=== PATIENT | male | born 1965 | race Caucasian/White ===

== ENCOUNTER 2017-04-21 18:08 | Emergency (ER) | payer BC ==
[2017-04-21 20:21] LABS: SQUAMOUS EPITHIAL < 1 /hpf (0-5); URINE BACTERIA RARE (<OCC); URINE BILIRUBIN NEGATIVE (NEGATIVE); URINE CLARITY Clear (Clear); URINE COLOR Yellow (YELLOW); URINE GLUCOSE (UA) NORMAL (Normal); URINE LEUKOCYTE ESTERASE NEG Leu/uL (Negative); URINE NITRATE NEGATIVE (NEGATIVE); URINE PROTEIN NEGATIVE (NEGATIVE)
[2017-04-21 20:22] LABS: URINE BLOOD 2+ (NEGATIVE)
--- NOTE | 2017-04-21 20:49 | C.PDOC ---
History Of Present Illness 51 y/o male presents to the ER complaining of pain to the left testicle which has been present since last night. Patient reports that he also has urine discoloration. Patient denies fever, abdominal pain,vomiting, hematuria, dysuria , and testicular trauma. Time Seen by Provider: 04/21/17 19:34 Chief Complaint (Nursing): Male Genitourinary History Per: Patient History/Exam Limitations: no limitations Onset/Duration Of Symptoms: Days Current Symptoms Are (Timing): Still Present Severity: Moderate Past Medical History Reviewed: Historical Data, Nursing Documentation, Vital Signs Vital Signs: Last Vital Signs Temp 97.9 F 04/21/17 22:39 Pulse 62 04/21/17 22:39 Resp 18 04/21/17 22:39 BP 110/73 04/21/17 22:39 Pulse Ox 98 04/21/17 22:53 - Medical History PMH: Asthma, Depression, Gastritis Surgical History: Tonsillectomy - [facility] Procedures ESOPHAGOGASTRODUODENOSCOPY [EGD] W/CLOSED BIOPSY (11/15/98) Family History: States: No Known Family Hx - Social History Hx Alcohol Use: No Hx Substance Use: No - Immunization History Hx Tetanus Toxoid Vaccination: No Hx Influenza Vaccination: No Hx Pneumococcal Vaccination: No Review Of Systems Except As Marked, All Systems Reviewed And Found Negative. Constitutional: Negative for: Fever, Chills Gastrointestinal: Negative for: Vomiting (left testicular pain), Abdominal Pain Genitourinary: Positive for: Other. Negative for: Dysuria, Hematuria Physical Exam - Physical Exam Appears: Non-toxic, No Acute Distress Skin: Normal Color, Warm Head: Atraumatic, Normacephalic Eye(s): bilateral: Normal Inspection Nose: Normal Oral Mucosa: Moist Neck: Supple Chest: Symmetrical Cardiovascular: Rhythm Regular Respiratory: Normal Breath Sounds, No Accessory Muscle Use, No Rales, No Rhonchi , No Wheezing Gastrointestinal/Abdominal: Normal Exam, Soft, No Tenderness, No Hernia Male Genital: Testicular Tenderness (left sided testicular tenderness), No Testicular Swelling Extremity: Normal ROM Neurological/Psych: Oriented x3, Normal Speech, Normal Motor, Normal Sensation ED Course And Treatment O2 Sat by Pulse Oximetry: 98 (RA) Pulse Ox Interpretation: Normal - Other Rad US Scrotum X-Ray: Read By Radiologist Interpretation: EXAM: US Scrotum. EXAM DATE/TIME: 04/21/2017 8:07 PM. CLINICAL HISTORY: 51 years old, male; Pain; Scrotum pain; Additional info: Left testicular pain. TECHNIQUE: Real-time ultrasound of the scrotum with color Doppler and image documentation. COMPARISON: No relevant prior studies available. FINDINGS: The right testicle measures 4.9 x 2.5 x 3.3 cm and the left testicle measures 4.4 x 2.2 x 2.8 cm. The testicles are homogeneous bilaterally. Color flow and arterial waveforms are demonstrated to. the testicles bilaterally (no torsion). There is a 3 mm right epididymal cyst. The left epididymis is normal. There are small bilateral hydroceles. IMPRESSION: No acute findings. Progress Note: UA and Testicular US ordered. Reassessment Condition: Improved (Pt teports that pain has subsided and remained pain free in the ER, UA and testicular US reviewed and results were d/ w pt. Pt with hematuria, advised follow up. Plan d/w pt who does agree) Disposition Counseled Patient/Family Regarding: Diagnosis, Need For Followup, Rx Given - Disposition Referrals: PMD, Urologist [Other] Disposition: HOME/ ROUTINE Disposition Time: 22:51 Condition: STABLE Additional Instructions: Please follow up with PMD / Urologist Return to ER if worse Instructions: Blood in the Urine (Hematuria), Adult (DC) Forms: [facility] (Armenian) - Clinical Impression Clinical Impression: Hematuria - PA / [employer] / Resident Statement MD/DO has reviewed & agrees with the documentation as recorded. - Scribe Statement The provider has reviewed the documentation as recorded by the Radha Castro Provider Attestation All medical record entries made by the Zachibluann were at my direction and personally dictated by me. I have reviewed the chart and agree that the record accurately reflects my personal performance of the history, physical exam, medical decision making, and the department course for this patient. I have also personally directed, reviewed, and agree with the discharge instructions and disposition.
--- NOTE | 2017-04-21 22:12 | US ---
EXAM: US Scrotum EXAM DATE/TIME: 04/21/2017 8:07 PM CLINICAL HISTORY: 51 years old, male; Pain; Scrotum pain; Additional info: Left testicular pain TECHNIQUE: Real-time ultrasound of the scrotum with color Doppler and image documentation. COMPARISON: No relevant prior studies available. FINDINGS: The right testicle measures 4.9 x 2.5 x 3.3 cm and the left testicle measures 4.4 x 2.2 x 2.8 cm. The testicles are homogeneous bilaterally. Color flow and arterial waveforms are demonstrated to the testicles bilaterally (no torsion). There is a 3 mm right epididymal cyst. The left epididymis is normal. There are small bilateral hydroceles. IMPRESSION: No acute findings.
[2017-04-21 22:40] VITALS: BP 110/73; PULSE 62; RESP 18; TEMP 97.9
[2017-04-21 22:43] VITALS: O2SAT 98
== END 2017-04-21 23:06 | disposition home or self-care (01) ==
LOC: C.ER 18:08
DX: R31.9 Hematuria, unspecified (principal)